=== PATIENT | male | born 1985 | race Hispanic/Latino ===

== ENCOUNTER 2022-01-05 16:34 | Inpatient (IN) | payer OTHER ==
[~2022-01-05] VITALS: Ht 188 cm; Wt 207.6 kg
[2022-01-05 18:51] VITALS: BP 134/80
[2022-01-05] MEDS ORDERED: NITROGLYCERIN 0.4 MG SL TAB SL PRN (19:30)
[2022-01-05 19:46] LABS: HEMATOCRIT 46.4 % (42-54); MEAN CORPUSCULAR HEMOGLOBIN 28.8 pg (27.0-33.0); MEAN CORPUSCULAR HGB CONC 32.1 g/dL (32.0-36.0); MEAN CORPUSCULAR VOLUME 89.7 fL (79-99); PLATELET COUNT (AUTO) 240 K/uL (130-400); RED BLOOD CELL COUNT(AUTO) 5.17 MIL/uL (4.50-6.20); RED CELL DISTRIBUTION WIDTH 13.5 % (11.0-15.5); WHITE BLOOD COUNT (AUTO) 15.6 K/uL (4.8-10.8)
[2022-01-05 20:01] LABS: ALBUMIN 3.2 g/dL (3.5-5.0); BILIRUBIN,TOTAL 0.7 mg/dL (0.2-1.0); CREATININE 0.9 mg/dL (0.5-1.5); MAGNESIUM 1.8 mg/dL (1.80-2.40); POTASSIUM 3.9 mmol/L (3.5-5.1); TOTAL PROTEIN, SERUM 8.3 g/dL (6.0-8.3)
[2022-01-05 20:03] LABS: HEMOGLOBIN A1C 5.9 % (4.0-6.0)
[2022-01-05 20:12] LABS: INR 1.04 (0.85-1.15); PROTHROMBIN TIME 11.3 SEC (9.6-11.6)
[2022-01-05 20:55] LABS: ERYTHROCYTE SEDIMENTATION RATE 23 MM/HR (0-15)
[2022-01-05 21:35] LABS: BAND NEUTROPHILS % (MANUAL) 3 % (0-2); EOSINOPHILS % (MANUAL) 3 % (1-6); LYMPHOCYTES % (MANUAL) 13 % (22-44); MAN.DIFF COMMENT-IMPRESSION MANUAL DIFFERENTIAL; MONOCYTES % (MANUAL) 2 % (2-9); SEGMENTED NEUTROPHILS % 79 % (40-70)
[2022-01-05 21:36] LABS: PLATELET MORPHOLOGY COMMENT PLT CLUMPS PRESENT
[2022-01-05] MEDS: FAMOTIDINE 20MG VIAL IV SCH (22:16)
[2022-01-05] MEDS: HYDROMORPHONE 1 MG INJ IV PRN (22:16)
[2022-01-05] MEDS: ONDANSETRON 4MG INJ IV PRN (22:24)
[2022-01-05] MEDS: ZOSYN 3.375GM+NS 50ML 50 ML IV SCH (22:24)
[2022-01-06] VITALS (7 sets, daily range): BP systolic 105–141; BP diastolic 50–89
[2022-01-06] MEDS ORDERED: ALBUTEROL INHALER 90MCG/INH IH PRN (03:30)
[2022-01-06 04:42] LABS: BASOPHILS % (AUTO) 0.2 % (0.0-5.0); EOSINOPHILS % (AUTO) 0.5 % (0.0-8.0); HEMATOCRIT 46.4 % (42-54); LYMPHOCYTES % (AUTO) 11.1 % (21.0-51.0); MEAN CORPUSCULAR HGB CONC 31.5 g/dL (32.0-36.0); MEAN CORPUSCULAR VOLUME 88.9 fL (79-99); MONOCYTES % (AUTO) 10.1 % (3.0-13.0); NEUTROPHILS % (AUTO) 77.6 % (40.0-77.0); PLATELET COUNT (AUTO) 260 K/uL (130-400); RED BLOOD CELL COUNT(AUTO) 5.22 MIL/uL (4.50-6.20); RED CELL DISTRIBUTION WIDTH 13.2 % (11.0-15.5); WHITE BLOOD COUNT (AUTO) 16.5 K/uL (4.8-10.8)
[2022-01-06 04:54] LABS: ALBUMIN 2.9 g/dL (3.5-5.0); CREATININE 0.9 mg/dL (0.5-1.5); POTASSIUM 4.5 mmol/L (3.5-5.1); TOTAL PROTEIN, SERUM 7.9 g/dL (6.0-8.3)
[2022-01-06] MEDS: ZOSYN 3.375GM+NS 50ML 50 ML IV SCH ×3 (04:57→21:50)
[2022-01-06] MEDS: FAMOTIDINE 20MG VIAL IV SCH ×2 (08:53→20:04)
[2022-01-06] MEDS ORDERED: COMPOUND IV REFRIGERATED 1 EACH IVSOLN MISC PRN (09:00)
[2022-01-06] MEDS ORDERED: VANCOMYCIN PROTOCOL PER PHARMACY IV SCH (09:00)
[2022-01-06] MEDS ORDERED: SOLU-MEDROL 40MG VIAL IVP SCH (09:30)
[2022-01-06] MEDS: ONDANSETRON 4MG INJ IV PRN (09:42)
[2022-01-06] MEDS: VANCOMYCIN 2GM/500 ML BAG 500 ML IV SCH ×2 (10:01→20:05)
[2022-01-06] MEDS: HYDROMORPHONE 1 MG INJ IV PRN (10:01)
[2022-01-07] MEDS: HYDROMORPHONE 1 MG INJ IV PRN (00:46)
[2022-01-07] MEDS: ONDANSETRON 4MG INJ IV PRN (00:48)
[2022-01-07 04:17] LABS: HEMATOCRIT 46.7 % (42-54); MEAN CORPUSCULAR HEMOGLOBIN 28.4 pg (27.0-33.0); MEAN CORPUSCULAR HGB CONC 31.9 g/dL (32.0-36.0); RED BLOOD CELL COUNT(AUTO) 5.25 MIL/uL (4.50-6.20); RED CELL DISTRIBUTION WIDTH 13.2 % (11.0-15.5); WHITE BLOOD COUNT (AUTO) 18.2 K/uL (4.8-10.8)
[2022-01-07 04:34] LABS: ALBUMIN 2.9 g/dL (3.5-5.0); CREATININE 0.9 mg/dL (0.5-1.5); POTASSIUM 3.8 mmol/L (3.5-5.1)
[2022-01-07 04:49] VITALS: BP 129/56
[2022-01-07] MEDS: ZOSYN 3.375GM+NS 50ML 50 ML IV SCH ×2 (06:28→13:00)
[2022-01-07 07:10] VITALS: BP 132/71
[2022-01-07] MEDS: FAMOTIDINE 20MG VIAL IV SCH (10:10)
[2022-01-07] MEDS: VANCOMYCIN 2GM/500 ML BAG 500 ML IV SCH (10:18)
[2022-01-07 11:15] VITALS: BP 124/65
[2022-01-07] MEDS ORDERED: NEOMYCIN/POLYMYXIN/HC OTIC SUSP 10ML BOTTLE AD SCH (14:00)
[2022-01-07] MEDS ORDERED: AMOX1TAB16 PO (14:38)
[2022-01-07 15:15] VITALS: BP 115/57
== END 2022-01-07 16:11 | disposition home or self-care (01) | DRG 152 ==
LOC: 3DH 18:26
PROVIDERS: ADMIT Hospitalist; ATTEND Hospitalist
DX: J36 Peritonsillar abscess (principal); E43 Unspecified severe protein-calorie malnutrition; Z68.43 Body mass index [BMI] 50.0-59.9, adult; E66.01 Morbid (severe) obesity due to excess calories; F17.210 Nicotine dependence, cigarettes, uncomplicated; D72.829 Elevated white blood cell count, unspecified; Z83.3 Family history of diabetes mellitus; Z82.49 Family history of ischemic heart disease and other diseases of the circulatory system
CPT/HCPCS: 36415; 80048; 80053; 80061; 82040; 83036; 83605; 83735; 84145; 85025; 85027; 85610; 85651; 86140; 87040; 87070; 87076; 93005; G0378; J1170; J2405; J2543; J2920; J3490